=== PATIENT | female | born 1955 | race Caucasian/White ===

== ENCOUNTER 2021-10-18 04:07 | Emergency (ER) | payer OTHER, SELFPAY ==
[2021-10-18] VITALS (8 sets, daily range): BP systolic 96–135; BP diastolic 56–80; PULSE 53–64; RESP 18; TEMP 36.6; O2SAT 95–99; BMI 31.1
--- NOTE | 2021-10-18 04:09 | ED_ITS ---
HPI - Abdominal Pain General Chief Complaint: Abdominal Pain Stated Complaint: RT. SIDE ABD. PAIN Time Seen by Provider: 10/18/21 04:09 History of Present Illness HPI narrative: 65-year-old female nonsmoker without chronic medical problems presents with a chief complaint of a sudden onset severe right flank pain with radiation around her side. She denies any obvious provocation or palliation. She is nauseated but denies any vomiting. She has no fever or chills. She denies dysuria, frequency or urgency. She denies any vaginal bleeding or discharge. She had taken some Motrin at home and thinks maybe she got some relief but quickly states she does not think so. She is not dizzy nor weak or lightheaded. She denies any change in diet. She denies any constipation or diarrhea. She has no dysuria, frequency or urgency Related Data Previous Rx's Medication Instructions Recorded hydrocodone 5 mg-acetaminophen 325 1 tab PO Q4-6H PRN pain #10 tabs 10/18/21 mg tablet ketorolac 10 mg tablet 10 mg PO Q6H PRN pain #14 tabs 10/18/21 ondansetron 4 mg disintegrating 4 mg PO TID-QID PRN nausea and 10/18/21 tablet vomiting #10 tabs tamsulosin 0.4 mg capsule (Flomax) 0.4 mg PO DAILY #30 caps 10/18/21 Allergies Allergy/AdvReac Type Severity Reaction Status Date / Time No Known Drug Allergies Allergy Verified 10/18/21 04:18 Review of Systems Review of Systems Narrative: GENERAL: Denies chills, fatigue, malaise, fever, sweats. HEENT: Denies sinus pain, ear pain, sore throat, difficulty swallowing, dizziness. RESPIRATORY: Denies dyspnea, cough, wheezing, hemoptysis, sputum. CARDIOVASCULAR: Denies chest pain, palpitations, orthopnea, edema, GASTROINTESTINAL: See HPI : See HPI MUSCULOSKELETAL: denies weakness, joint pain, or bony pain SKIN: Denies rash, skin lesions, or other NEUROLOGIC: Denies weakness, headache, numbness, change in speech, confusion, seizures, incoordination. PSYCHIATRIC: No concerning psychosocial issues. 12 point review of systems is negative except for those stated above Patient History Social History Smoking Status: Never smoker Exam Narrative Exam Narrative: GENERAL: [65] year old patient appears stated age. Well-developed patient, in obvious distress, tearful, complaining of pain, pacing and rocking back and forth. HEAD: Atraumatic. Normocephalic. EYES: Pupils equal round and reactive. Extraocular motions intact. No scleral icterus. No injection or drainage. ENT: Nose without bleeding, purulent drainage. Throat without erythema, tonsillar hypertrophy or exudate. Airway patent. NECK: Trachea midline. Non tender CARDIOVASCULAR: Regular rate and rhythm without murmurs, gallops, or rubs. RESPIRATORY: Clear to auscultation. Breath sounds equal bilaterally. No wheezes, rales, or rhonchi. GASTROINTESTINAL: Abdomen soft, non-tender, nondistended. EXTREMITIES: No edema or joint tenderness. BACK: Nontender without deformity or crepitance. No flank tenderness. NEURO: AOx3. SKIN: No rash or erythema of visible areas Initial Vital Signs Initial Vital Signs: Vital Signs Temperature 97.8 F 10/18/21 04:10 Pulse Rate 64 10/18/21 04:10 Respiratory Rate 18 10/18/21 04:10 Blood Pressure 135/78 10/18/21 04:10 Pulse Oximetry 97 10/18/21 04:10 Oxygen Delivery Method 10/18/21 04:10 Course Orders Ordered: Discontinued Medications Hydrocodone Bitart/Acetaminophen (Hydrocodone/Acet 5/325 Prepack) 1 bottle MISC SEEINSTR ONE Stop: 10/18/21 06:45 Last Admin: 10/18/21 06:59 Dose: 1 bottle Documented By: EB Hydromorphone HCl (Hydromorphone 0.5 Mg Inj) 0.5 mg IV NOW ONE Stop: 10/18/21 04:36 Last Admin: 10/18/21 04:38 Dose: 0.5 mg Documented By: EB Sodium Chloride (Normal Saline 0.9%) 1,000 mls @ 1,000 mls/hr IV BOLUS ONE Stop: 10/18/21 05:14 Last Infusion: 10/18/21 07:00 Dose: 0 mls/hr Documented By: Admin: 10/18/21 04:23 Dose: 1,000 mls/hr Documented By: AP Ketorolac Tromethamine (Ketorolac 30 Mg/Ml Vial) 15 mg IV NOW ONE Stop: 10/18/21 04:16 Last Admin: 10/18/21 04:22 Dose: 15 mg Documented By: MARICHUY Ondansetron HCl (Ondansetron 4 Mg/2 Ml Inj) 4 mg IV NOW ONE Stop: 10/18/21 04:16 Last Admin: 10/18/21 04:22 Dose: 4 mg Documented By: MARICHUY Ondansetron HCl (Ondansetron 4 Mg Odt Prepack) 1 bottle MISC SEEINSTR ONE Stop: 10/18/21 06:45 Last Admin: 10/18/21 06:58 Dose: 1 bottle Documented By: WESTON MDM - Abdominal Pain Lab Data Result diagrams: 10/18/21 04:16 10/18/21 04:16 Labs: Lab Results 10/18/21 10/18/21 10/18/21 Range/Units 04:16 04:16 04:16 WBC 10.8 (4.5-11.0) X10^3/uL RBC 4.75 (4.0-5.2) X10^6/uL Hgb 14.6 (12.0-16.0) g/dL Hct 43.1 (36-46) % MCV 90.8 (80-100) fL MCH 30.7 (26-34) PG MCHC 33.9 (30-36) % RDW 13.7 (11.6-14.8) % Plt Count 214 (150-400) X10^3/uL Neut % (Auto) 62.7 (50-75) % Lymph % (Auto) 29.3 (25-40) % Knott % (Auto) 6.7 (3-14) % Eos % (Auto) 0.9 L (2-4) % Baso % (Auto) 0.4 (0-2) % Neut # (Auto) 6800 (4462-0260) /uL Lymph # (Auto) 3200 (9798-6968) /uL Knott # (Auto) 700 (0-900) /uL Eos # (Auto) 100 (0-450) /uL Baso # (Auto) 0 (0-100) /uL Sodium 138 (137-145) mmol/L Potassium 3.7 (3.4-5.1) mmol/L Chloride 107 (98-107) mmol/L Carbon Dioxide 22 (22-32) mmol/L BUN 15 (7-17) mg/dL Creatinine 0.57 (0.52-1.04) mg/dL Estimated GFR > 60 (>60) mL/min BUN/Creatinine Ratio 26.3 H (6-22) Glucose 156 H (80-110) mg/dL Calcium 8.6 (8.4-10.2) mg/dL Total Bilirubin 0.5 (0.2-1.3) mg/dL AST 34 (14-36) IU/L ALT 32 (<35) IU/L Alkaline Phosphatase 96 (38-126) U/L Total Protein 6.9 (6.3-8.2) g/dL Albumin 4.3 (3.5-5.0) g/dL Globulin 2.6 (1.7-4.1) g/dL Albumin/Globulin Ratio 1.7 (1.0-2.8) Urine Color Light pink Urine Appearance Cloudy Urine pH 5.0 (4.5-8.0) Ur Specific Oakley >=1.030 H (1.000-1.035) Urine Protein 2+ H (Negative) Urine Glucose (UA) Negative (Negative) g/dL Urine Ketones Negative (NEGATIVE) Urine Occult Blood 3+ H (Negative) Urine Nitrate Negative (Negative) Urine Bilirubin Negative (NEGATIVE) Urine Urobilinogen 0.2 (0.2) E.U./dL Ur Leukocyte Esterase Trace H (NEGATIVE) Urine RBC >100/hpf H (0-5/HPF) Urine WBC 0-1/hpf (0-5/HPF) Ur Squamous Epith Cells 1-5 /hpf (0-5/HPF) Urine Bacteria Few (2-10) H (None) Ur Culture Indicated? Specimen cultured Imaging Data CT scan - abdomen/pelvis: Radiologist's Impression: Carmen Bui??65??F??1955 ? Allergy/Adv: No Known Drug Allergies (More??) Close Abdomen/Pelvis CT (Signed) Grayson Christina - 10/18/21 Launch?[address] [address] [address] Scan Report Signed Patient: Carmen Bui MR#: [id number] : 1955 Acct:[id number] Age/Sex: 65 / F Date of Service: 10/18/21 Loc: ED Accession Number: [id number] ?? Procedure: CT kidney ureter bladder (KUB) Ordering Provider: Enrique Gaytan D.O. PROCEDURE:? CT KIDNEY URETER BLADDER (KUB) ? INDICATIONS:? severe sudden flank pain, radiation to groin ? TECHNIQUE:? Axial sections were acquired from the lung bases to the pubic symphysis.? Petersen l and sagittal reformats were performed.? For radiation dose reduction, the following was used: ?automated exposure control, adjustment of mA and/or kV according to patient size.? ? COMPARISON:? None. ? FINDINGS:? Image quality:? Excellent.? ? Lung bases:? Unremarkable.? ? Heart:? No significant findings. ? URINARY: Right Kidney:? No nonobstructing right-sided kidney stones are seen.? There is moderate right-sided hydronephrosis. Within the inferolateral right kidney, there is an apparent complex cyst, with layering debris, as on series 2, image 36 and 37. This measures up to 8 mm. Right Ureter:? Moderate right-sided hydroureter is seen.? There is a 1-2 mm obstructing stone seen at the right ureterovesicular junction, as on series 2, image 69.? ? Left Kidney: ? No stones or hydronephrosis. Left Ureter:? No hydroureter.? ? Bladder:? Normal wall thickness. No stones. ? ? ? ABDOMEN: Liver:? Unremarkable.? ? Gallbladder:? Unremarkable.? ? Biliary ducts:? Unremarkable.? ? Pancreas:? Unremarkable.? ? Spleen:? Unremarkable.? ? Adrenal Glands:? Unremarkable.? ? ? Stomach and Bowel:? Stomach, small bowel loops, and colon are unremarkable.? Peritoneum:? No abnormal intraperitoneal fluid.? No free air.? ? Ventral Wall: ? No hernia.? Abdominal Nodes:? No enlarged retroperitoneal or mesenteric lymph nodes.? Vessels:? Aorta and inferior vena cava are normal in size.? ? PELVIS: Pelvic Organs:? Unremarkable.? ? Pelvic Nodes: Unremarkable. Miscellaneous: No inguinal hernias are seen. ? ? ? Bones:? Moderate lumbar spine degenerative change can be seen. ? IMPRESSION:? ? 1-2 mm obstructing stone seen involving the right ureterovesicular junction, with associated moderate right-sided hydroureter and hydronephrosis. ? No nonobstructing kidney stones are seen. ? 8 mm complex cyst involving the right kidney, with apparent layering debris.? Please consider follow-up ultrasound, when clinically appropriate. ? ? Note: No significant discrepancy from the preliminary report. ? ? Dictated by: Grayson Christina M.D. on 10/18/2021 at 8:26 ? ? Approved by: Grayson Christina M.D. on 10/18/2021 at 8:31 ? MDM Narrative Medical decision making narrative: Patient with sudden onset colicky type right flank pain with radiation to the groin and urine with blood in the absence of infection has a CT demonstrating stone. Labs are reassuring and show no renal failure and there is no sign of infection. Pain is well controlled and she is tolerating orals. Return precautions discussed and questions answered to her apparent satisfaction Discharge Plan Departure Patient Disposition: Home Clinical Impression: Calculus of kidney Instructions: DI for Kidney Stones Activity Restrictions/Additional Instructions: *You have been diagnosed with [right-sided kidney stone] *What to do: *Please continue to take your regular medications as directed. [ x] New medication prescriptions sent to your pharmacy: [[facility] ] [ ] New medication written as a paper prescription [ ] No new medications given *Please follow up with your primary care provider in 2-3 days, call for an appointment. Let them know you were seen in the Emergency Department and that we ask that you be seen in follow up. We will electronically transmit a record of today's note if your PCP is in our system *If you do not have a primary care provider please contact the [facility] Resource line at [phone]. They will ask some questions about your medical history and help get you set up with a doctor in the community. *Return to Emergency Department if you should have any new, worsening or concerning symptoms, such as [fever greater than 101 F, shaking chills, worsening pain, persistent vomiting or other bothersome symptoms] Prescriptions: New hydrocodone-acetaminophen 5-325 mg tablet 1 tab PO Q4-6H PRN (Reason: pain) Qty: 10 0RF ketorolac 10 mg tablet 10 mg PO Q6H PRN (Reason: pain) Qty: 14 0RF tamsulosin [Flomax] 0.4 mg capsule 0.4 mg PO DAILY Qty: 30 0RF ondansetron 4 mg tablet,disintegrating 4 mg PO TID-QID PRN (Reason: nausea and vomiting) Qty: 10 0RF Referrals: Robe Dodd MD [Physician] - Visit Report Forms: Patient Portal/API
--- NOTE | 2021-10-18 04:15 | DI.CT.S_ITS ---
PROCEDURE: CT KIDNEY URETER BLADDER (KUB) INDICATIONS: severe sudden flank pain, radiation to groin TECHNIQUE: Axial sections were acquired from the lung bases to the pubic symphysis. Coronal and sagittal reformats were performed. For radiation dose reduction, the following was used: automated exposure control, adjustment of mA and/or kV according to patient size. COMPARISON: None. FINDINGS: Image quality: Excellent. Lung bases: Unremarkable. Heart: No significant findings. URINARY: Right Kidney: No nonobstructing right-sided kidney stones are seen. There is moderate right-sided hydronephrosis. Within the inferolateral right kidney, there is an apparent complex cyst, with layering debris, as on series 2, image 36 and 37. This measures up to 8 mm. Right Ureter: Moderate right-sided hydroureter is seen. There is a 1-2 mm obstructing stone seen at the right ureterovesicular junction, as on series 2, image 69. Left Kidney: No stones or hydronephrosis. Left Ureter: No hydroureter. Bladder: Normal wall thickness. No stones. ABDOMEN: Liver: Unremarkable. Gallbladder: Unremarkable. Biliary ducts: Unremarkable. Pancreas: Unremarkable. Spleen: Unremarkable. Adrenal Glands: Unremarkable. Stomach and Bowel: Stomach, small bowel loops, and colon are unremarkable. Peritoneum: No abnormal intraperitoneal fluid. No free air. Ventral Wall: No hernia. Abdominal Nodes: No enlarged retroperitoneal or mesenteric lymph nodes. Vessels: Aorta and inferior vena cava are normal in size. PELVIS: Pelvic Organs: Unremarkable. Pelvic Nodes: Unremarkable. Miscellaneous: No inguinal hernias are seen. Bones: Moderate lumbar spine degenerative change can be seen. IMPRESSION: 1-2 mm obstructing stone seen involving the right ureterovesicular junction, with associated moderate right-sided hydroureter and hydronephrosis. No nonobstructing kidney stones are seen. 8 mm complex cyst involving the right kidney, with apparent layering debris. Please consider follow-up ultrasound, when clinically appropriate. Note: No significant discrepancy from the preliminary report. Dictated by: Grayson Christina M.D. on 10/18/2021 at 8:26 Approved by: Grayson Christina M.D. on 10/18/2021 at 8:31
[2021-10-18] MEDS: ONDANSETRON 4 MG/2 ML INJ IV (04:22)
[2021-10-18] MEDS: KETOROLAC 30 MG/ML VIAL 15 MG IV (04:22)
[2021-10-18] MEDS: SODIUM CHLORIDE 0.9% 1,000 ML 1000 ML IV (04:23)
[2021-10-18 04:35] LABS: Add Manual Diff / Slide Review NO; Basophils Absolute Auto 0 /uL (0-100); Basophils Percent Auto 0.4 % (0-2); Eosinophils Absolute Auto 100 /uL (0-450); Eosinophils Percent Auto 0.9 % (2-4); Hematocrit 43.1 % (36-46); Hemoglobin 14.6 g/dL (12.0-16.0); Lymphocytes Absolute Auto 3200 /uL (1100-4500); Lymphocytes Percent Auto 29.3 % (25-40); Mean Corpuscular HGB Conc 33.9 % (30-36); Mean Corpuscular Hemoglobin 30.7 PG (26-34); Mean Corpuscular Volume 90.8 fL (80-100); Monocytes Absolute Auto 700 /uL (0-900); Monocytes Percent Auto 6.7 % (3-14); Neutrophils Absolute Auto 6800 /uL (1500-7000); Neutrophils Percent Auto 62.7 % (50-75); Platelet Count 214 X10^3/uL (150-400); Red Blood Cell Count 4.75 X10^6/uL (4.0-5.2); Red Cell Distribution Width 13.7 % (11.6-14.8); White Blood Cell Count 10.8 X10^3/uL (4.5-11.0)
[2021-10-18 04:38] LABS: Alanine Aminotransferase 32 IU/L (<35); Albumin 4.3 g/dL (3.5-5.0); Albumin Globulin Ratio 1.7 (1.0-2.8); Alkaline Phosphatase 96 U/L (38-126); Aspartate Aminotransferase 34 IU/L (14-36); BUN Creatinine Ratio 26.3 (6-22); Bilirubin Total 0.5 mg/dL (0.2-1.3); Blood Urea Nitrogen 15 mg/dL (7-17); Calcium 8.6 mg/dL (8.4-10.2); Carbon Dioxide 22 mmol/L (22-32); Chloride 107 mmol/L (98-107); Estimated Glomerular Filt Rate > 60 mL/min (>60); Globulin 2.6 g/dL (1.7-4.1); Glucose 156 mg/dL (80-110); HEMOLYSIS 28 (0-50); Potassium 3.7 mmol/L (3.4-5.1); Sodium 138 mmol/L (137-145); Total Protein 6.9 g/dL (6.3-8.2)
[2021-10-18] MEDS: HYDROMORPHONE 0.5 MG INJ IV (04:38)
[2021-10-18 04:42] LABS: Appearance Urine UA CLOUDY; Bilirubin Urine UA NEGATIVE (NEGATIVE); Glucose Urine UA NEGATIVE (Negative); Ketones Urine UA NEGATIVE (NEGATIVE); Leukocyte Esterase Urine UA TRACE (NEGATIVE); Nitrite Urine UA NEGATIVE (Negative); Occult Blood Urine UA 3+ (Negative); Protein Urine UA 2+ (Negative); Specific Gravity Urine UA >=1.030 (1.000-1.035); Urobilinogen Urine UA 0.2 E.U./dL (0.2)
[2021-10-18 04:45] LABS: Color Urine UA LIGHT PINK
[2021-10-18 04:51] LABS: Bacteria Urine Few (2-10); Culture Indicated Urine Specimen Cultured; RBC Urine >100/HPF (0-5/HPF); Squamous Epithelial Cell Urine 1-5 /HPF (0-5/HPF); WBC Urine 0-1/HPF (0-5/HPF)
[2021-10-18] MEDS: ONDANSETRON 4 MG ODT PREPACK 1 BOTTLE MISC (06:58)
[2021-10-18] MEDS: HYDROCODONE/ACET 5/325 PREPACK 1 BOTTLE MISC (06:59)
== END 2021-10-18 07:00 | disposition home or self-care (01) ==
PROVIDERS: Emergency Provider Emergency Medicine
DX: N20.0 Calculus of kidney (principal)
CPT/HCPCS: 36415; 74176; 80053; 81001; 85025; 87086; 96361; 96374; 96375; 99284; J1170; J1885; J2405